=== PATIENT | female | born 1940 | race Caucasian/White ===

== ENCOUNTER → 2017-01-19 | Outpatient (CLI) | payer OTHER ==
[~2017-01-19] VITALS: Ht 152.4 cm; Wt 61.0 kg
[~2017-01-19] MED LIST: ASPIR-LOW81 MG PO; CALCIUM 600 +1 EAC4 PO; HAIR, SKIN & N1 EAC1 PO; MOTRIN600 MG PO; NOHOMEMEDS; SIMVASTATIN20 MG PO
[2017-01-19 10:22] VITALS: BP 150/71
== END | disposition home or self-care (01) ==
LOC: IVINF 09:34
DX: M81.0 Age-related osteoporosis without current pathological fracture (principal)
CPT/HCPCS: 96365; J3489